=== PATIENT | male | born 1990 | race Caucasian/White ===

== ENCOUNTER 2019-08-31 18:57 | Emergency (ER) | payer OTHER, SELFPAY ==
[2019-08-31] MEDS ORDERED: Adacel (T-DAP) 0.5 ML SYRINGE ONE (20:30)
[2019-08-31] MEDS ORDERED: HYDROcodone/Acetaminophen 7.5/325 mg Tablet ONE (20:30)
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
[2019-08-31] MEDS ORDERED: Lidocaine 1% (PF) 30 ML VIAL ONE (21:58)
== END 2019-08-31 23:30 | disposition home or self-care (01) ==
LOC: ERS 18:57
DX: S61.411A Laceration without foreign body of right hand, initial encounter (principal); M25.512 Pain in left shoulder; M25.572 Pain in left ankle and joints of left foot; F17.290 Nicotine dependence, other tobacco product, uncomplicated; V89.2XXA Person injured in unspecified motor-vehicle accident, traffic, initial encounter
CPT/HCPCS: 12002; 90471; 90715; J2001